=== PATIENT | male | born 1980 ===

== ENCOUNTER 2025-08-06 13:26 | Emergency (ER) | payer MEDICAID, OTHER, SELFPAY ==
--- NOTE | ~2025-08-06 | XR_ITS ---
EXAMINATION: XR CHEST CLINICAL INFORMATION: cough w/ blood tinged sputum COMPARISON: None available. TECHNIQUE: 2 views of the chest were obtained. FINDINGS: The cardiac, hilar, and mediastinal contours are normal. The lungs are clear bilaterally. There is no pneumothorax or pleural effusion. There is no focal osseous or soft tissue abnormality. XR/XR chest 2V IMPRESSION: No active pulmonary disease. Electronically signed by: Nito Avery MD 08/06/2025 04:02 PM [email or web address]
[2025-08-06 14:47] VITALS: BP 150/83; PULSE 77; RESP 16; TEMP 36.7; O2SAT 97; BMI 36.5
--- NOTE | 2025-08-06 14:48 | ED.GENADULT ---
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 Reports cough with phlegm. No fever, chest pain. Related Data Allergies Allergy/AdvReac Type Severity Reaction Status Date / Time No Known Allergies Allergy Verified 08/06/25 14:58 [facility] Social History Social History Advance Directives: No Advance Directives Information Provided: No Do you have a plan to hurt others: No Plan Physical Exam ED Exam Exam: EXAM: Gen: Alert, awake, well appearing, well hydrated. Head: Atraumatic Eyes: Anicteric, Normal conjunctiva. ENT: Moist mucosa, no pallor. Neck: Supple. Respiratory: Breathing comfortably, No distress.Clear to auscultation bilaterally, symmetric chest expansion, No wheeze, rales, ronchi. Cardiovascular: Regular rate and rhythm. No murmurs or rub. Well perfused periphery, warm extremities. No edema. Abdominal: Soft, no objective distension. No palpable masses or obvious organomegaly. No focal tenderness, no guarding, no rebound tenderness or other peritoneal findings. : No flank tenderness. Neuro: Alert. Gross movement of all extremities intact. Vital signs: See flowsheet Vital Signs: Vital Signs - 24 hr 08/06/25 14:47 08/06/25 17:55 Temperature 98.1 F 98.1 F Pulse Rate 77 81 Respiratory Rate 16 16 Blood Pressure 150/83 H 156/78 H Pulse Oximetry 97 97 Oxygen Delivery Method Room Air Room Air BMI result Body Mass Index 36.5 Course Course Course Narrative: This is a Rapid Medical Examination (RME) performed by Josiane Benitez PA-C in triage. Full HPI, ROS, assessment and treatment plan per primary provider in the Main ED. Hx: 44 yo M here for eval of headache, cough productive of blood tinged sputum, vomiting (10+ episodes) x2 days. no sick contacts. he works at [email or web address] (formerly [email or web address]). Plan: viral swabs, cxr Medical Decision Making Medical Decision Making MDM Narrative: 44-year-old male who is quite healthy he presents with a URI symptoms mild generalized gradual-onset headache, dry cough, nausea vomiting. He felt it was perhaps a little bit of blood-tinged phlegm. He takes no hormones no history of DVT or PE. No significant pleuritic pain or palpitations. No objective signs of DVT doubt PE. Probably mild viral bronchitis. Patient requesting work note as he works stocking vegetables at a [employer] looks quite well clinically Lab Data Labs: Lab Results 08/06/25 Range/Units 15:13 Influenza Type A (PCR) NEGATIVE (Negative) Influenza Type B (PCR) NEGATIVE (Negative) RSV RNA Qual (PCR) NEGATIVE (Negative) SARS-CoV-2 RNA (RT-PCR) NEGATIVE (Negative) Discharge Plan Discharge Clinical Impression: URI (upper respiratory infection) Patient Disposition: Home, Self-Care Instructions: Acute Bronchitis (ED) Stand Alone Forms: Work/School Release Interventions: ED Discharge Assessment Last Done: 08/06/25 18:26 Discharge Date/Time: 08/06/25 18:27 Print Language: Slovenian
[2025-08-06 15:54] LABS: Resp Syncy Virus RNA Qual PCR NEGATIVE (Negative); SARS COV2 PCR INHOUSE NEGATIVE (Negative)
[2025-08-06 17:55] VITALS: BP 156/78; PULSE 81; RESP 16; TEMP 36.7; O2SAT 97
[2025-08-06 18:26] VITALS: BP 156/78; PULSE 81; RESP 16; TEMP 36.7; O2SAT 97
== END 2025-08-06 18:27 | disposition home or self-care (01) ==
PROVIDERS: Physician Assistant Medical; Emergency Provider Emergency Medicine
DX: J06.9 Acute upper respiratory infection, unspecified (principal); R05.9 Cough, unspecified; R11.2 Nausea with vomiting, unspecified; Z03.818 Encounter for observation for suspected exposure to other biological agents ruled out
CPT/HCPCS: 71046; 87637; 99283

== ENCOUNTER → 2025-08-06 14:58 | Outpatient (BNV) | payer SELFPAY | PROVIDERS: Visit Provider Radiology Diagnostic Radiology | DX: R05.9 Cough, unspecified (principal); R04.2 Hemoptysis | CPT/HCPCS: 71046 ==